=== PATIENT | female | born 1975 | race Caucasian/White ===

== ENCOUNTER 2020-05-01 12:39 | Emergency (ER) | payer MEDICAID, OTHER ==
[~2020-05-01] VITALS: Ht 170.2 cm; Wt 77.3 kg
[~2020-05-01 12:39] MED LIST: RISP1TAB48 PO
[2020-05-01 12:47] VITALS: BP 116/68
[2020-05-01] MEDS ORDERED: DiphenhydrAMINE HCL 25 MG CAPSULE PO ONE (14:00)
[2020-05-01] MEDS ORDERED: PSYCH PO (14:32)
== END 2020-05-01 14:44 | disposition home or self-care (01) ==
LOC: EMS 13:50
DX: R21 Rash and other nonspecific skin eruption (principal); F17.210 Nicotine dependence, cigarettes, uncomplicated; F20.9 Schizophrenia, unspecified
CPT/HCPCS: 99406

== ENCOUNTER 2020-07-16 11:04 | Emergency (ER) | payer OTHER ==
[~2020-07-16] VITALS: Ht 167.6 cm; Wt 90.9 kg
[~2020-07-16 11:04] MED LIST changes: +PSYCH PO; -RISP1TAB48 PO
[2020-07-16] MEDS ORDERED: PredniSONE 20 MG TABLET PO ONE (11:30)
[2020-07-16] MEDS ORDERED: METF-960 PO (11:48)
[2020-07-16] MEDS ORDERED: BENZ0.5T44 PO (11:48)
[2020-07-16] MEDS ORDERED: FLUP1 PO (11:48)
[2020-07-16 17:10] VITALS: BP 120/79
== END 2020-07-16 17:12 | disposition home or self-care (01) ==
LOC: EMS 11:06
DX: T78.2XXA Anaphylactic shock, unspecified, initial encounter (principal); Z91.011 Allergy to milk products; Z88.0 Allergy status to penicillin; X58.XXXA Exposure to other specified factors, initial encounter
CPT/HCPCS: 99285; J7512; 99283

== ENCOUNTER 2020-08-06 15:24 | Emergency (ER) | payer OTHER ==
[~2020-08-06] VITALS: Ht 167.6 cm; Wt 77.3 kg
[~2020-08-06 15:24] MED LIST changes: +BENZ0.5T44 PO; +FLUP1 PO; +METF-960 PO
[2020-08-06] MEDS ORDERED: IBUP-1506 PO (15:33)
[2020-08-06 19:30] VITALS: BP 127/79
== END 2020-08-06 21:11 | disposition home or self-care (01) ==
LOC: EMS 15:26
DX: S62.634A Displaced fracture of distal phalanx of right ring finger, initial encounter for closed fracture (principal); X58.XXXA Exposure to other specified factors, initial encounter; Y93.89 Activity, other specified; Y92.89 Other specified places as the place of occurrence of the external cause; Y99.8 Other external cause status
CPT/HCPCS: 99283

== ENCOUNTER 2021-02-06 14:40 | Emergency (ER) | payer OTHER ==
[~2021-02-06] VITALS: Ht 167.6 cm; Wt 77.3 kg
[~2021-02-06 14:40] MED LIST changes: +IBUP-1506 PO
[2021-02-06 19:30] VITALS: BP 119/67
== END 2021-02-06 20:00 | disposition home or self-care (01) ==
LOC: EMS 14:43
DX: F20.9 Schizophrenia, unspecified (principal); F17.210 Nicotine dependence, cigarettes, uncomplicated; E11.9 Type 2 diabetes mellitus without complications; F31.9 Bipolar disorder, unspecified
CPT/HCPCS: 99284; Z7502

== ENCOUNTER 2022-01-13 16:04 | Emergency (ER) | payer OTHER ==
[~2022-01-13] VITALS: Ht 167.6 cm; Wt 84.1 kg
[~2022-01-13 16:04] MED LIST changes: -BENZ0.5T44 PO; +BENZ0.5T49 PO; +METF-1211 PO; -METF-960 PO
[2022-01-13 16:05] VITALS: BP 142/89
[2022-01-13] MEDS ORDERED: DIPH25TA51 PO (19:34)
[2022-01-13] MEDS ORDERED: PERM60CR19 TP (19:34)
== END 2022-01-13 23:06 | disposition home or self-care (01) ==
LOC: EMS 16:06
DX: B86 Scabies (principal); F20.9 Schizophrenia, unspecified; F31.9 Bipolar disorder, unspecified; E11.9 Type 2 diabetes mellitus without complications; F17.210 Nicotine dependence, cigarettes, uncomplicated; Z88.8 Allergy status to other drugs, medicaments and biological substances; Z91.011 Allergy to milk products; Z88.0 Allergy status to penicillin; Z91.014 Allergy to mammalian meats
CPT/HCPCS: 99282; Z7502

== ENCOUNTER 2022-04-17 18:27 | Inpatient (IN) | payer MEDICAID, OTHER ==
[~2022-04-17] VITALS: Ht 165.1 cm; Wt 84.0 kg
[~2022-04-17 18:27] MED LIST changes: -BENZ0.5T49 PO; +DIPH25TA51 PO; -FLUP1 PO; -IBUP-1506 PO; -METF-1211 PO; +PERM60CR19 TP; -PSYCH PO
[2022-04-17 19:56] LABS: BASOPHILS % (AUTO) 0.5 % (0.0-2.0); EOSINOPHILS % (AUTO) 1.8 % (1.0-6.0); HEMATOCRIT 40.7 % (36-46); HEMOGLOBIN 13.5 g/dL (12.0-16.0); LYMPHOCYTES # (AUTO) 3.3 K/uL (1.0-4.8); LYMPHOCYTES % (AUTO) 35.5 % (22.0-44.0); MEAN CORPUSCULAR HEMOGLOBIN 27.7 pg (26.0-34.0); MEAN CORPUSCULAR HGB CONC 33.2 G/dL (31.0-37.0); MEAN CORPUSCULAR VOLUME 83 fL (80-100); MONOCYTES # (AUTO) 0.6 K/uL (0.1-1.0); MONOCYTES % (AUTO) 6.1 % (2.0-9.0); NEUTROPHILS # (AUTO) 5.2 K/uL (1.8-7.7); NEUTROPHILS % (AUTO) 56.1 % (40.0-70.0); PLATELET COUNT (AUTO) 273 K/uL (150-450); RED BLOOD CELL COUNT(AUTO) 4.89 MIL/uL (4.00-5.20); RED CELL DISTRIBUTION WIDTH 15.1 % (11.5-14.5)
[2022-04-17 20:03] LABS: ANION GAP 8 mmol/L (8-16); CALCIUM, TOTAL 9.1 mg/dL (8.8-10.5); CARBON DIOXIDE 28 mmol/L (22-29); CHLORIDE 105 mmol/L (98-107); CREATININE 0.84 mg/dL (0.60-1.30); GLUCOSE,RANDOM 88 mg/dL (70-110); POTASSIUM 4.2 mmol/L (3.5-5.1); SODIUM SERUM 141 mmol/L (136-145); UREA NITROGEN, BLOOD 13 mg/dL (7-18)
[2022-04-17 20:06] LABS: GLOMERULAR FILTR. RATE CALC > 60 mL/min (>60)
[2022-04-17 20:09] LABS: ALANINE AMINOTRANSFERASE 7 U/L (12-78); ALBUMIN 3.7 g/dL (3.4-5.0); ALKALINE PHOSPHATASE 68 U/L (46-116); ASPARTATE AMINOTRANSFERASE 10 U/L (15-37); BILIRUBIN,TOTAL 0.1 mg/dL (0.1-1.0); TOTAL PROTEIN, SERUM 7.1 g/dL (6.4-8.2)
[2022-04-17 21:07] LABS: AMPHET/METH SCREEN,URINE NEGATIVE (NEGATIVE); BARBITURATE SCREEN, URINE NEGATIVE (NEGATIVE); BENZODIAZEPINES SCREEN,URINE NEGATIVE (NEGATIVE); CANNABINOID SCREEN,URINE NEGATIVE (NEGATIVE); COCAINE SCREEN,URINE NEGATIVE (NEGATIVE); METHADONE SCREEN, URINE NEGATIVE (NEGATIVE); OPIATE SCREEN,URINE NEGATIVE (NEGATIVE)
[2022-04-17 21:08] LABS: PHENCYCLIDINE SCREEN,URINE NEGATIVE (NEGATIVE)
[2022-04-17 22:04] LABS: COVID AG,FIA SOURCE NASAL SWAB
[2022-04-18] MEDS: ZOLPIDEM TARTRATE 10 MG TABLET PO PRN (01:32)
[2022-04-18 02:04] LABS: APPEARANCE,URINE CLEAR (CLEAR); BILIRUBIN,URINE NEGATIVE (NEGATIVE); GLUCOSE, URINE (UA) NEGATIVE (NEGATIVE); KETONES,URINE NEGATIVE (NEGATIVE); LEUKOCYTE ESTERASE ,URINE NEGATIVE (NEGATIVE); NITRATE,URINE NEGATIVE (NEGATIVE); OCCULT BLOOD,URINE NEGATIVE (NEGATIVE); PROTEIN,URINE NEGATIVE (NEGATIVE); SPECIFIC GRAVITIY, URINE 1.006 (1.003-1.030); UROBILINOGEN,URINE <=1.0 mg/dL (<=1.0)
[2022-04-18 02:18] VITALS: BP 152/99
[2022-04-18] MEDS ORDERED: CloNIDine HCL 0.1 MG TABLET PO PRN (08:45)
[2022-04-18] MEDS ORDERED: MAGNESIUM HYDROXIDE SUSPENSION 30 ML UDCUP PO PRN (08:45)
[2022-04-18] MEDS ORDERED: PETROLATUM,WHITE 28 GM JELLY TP PRN (08:45)
[2022-04-18] MEDS ORDERED: ONDANSETRON HCL 4 MG TABLET PO PRN (08:45)
[2022-04-18] MEDS ORDERED: OMEPRAZOLE 20 MG CAPSULE PO PRN (08:45)
[2022-04-18] MEDS: LORazepam 2 MG TABLET PO PRN ×2 (08:45→21:15)
[2022-04-18] MEDS ORDERED: DOCUSATE SODIUM 100 MG CAPSULE PO PRN (08:45)
[2022-04-18] MEDS ORDERED: BENZOCAINE/MENTHOL LOZENGE PO PRN (08:45)
[2022-04-18] MEDS: HALOPERIDOL 5 MG TABLET PO PRN ×2 (08:45→21:15)
[2022-04-18] MEDS ORDERED: ALBUTEROL SULFATE HFA 90 MCG/PUFF 8 GM INHALER IH PRN (08:45)
[2022-04-18] MEDS ORDERED: LOPERAMIDE HCL 2 MG CAPSULE PO PRN (08:45)
[2022-04-18] MEDS ORDERED: MAG HYDROX/AL HYDROX/SIMETH ES 30 ML SUSPENSION UDCUP PO PRN (08:45)
[2022-04-18] MEDS ORDERED: BACITRACIN 28 GM OINTMENT TP PRN (08:45)
[2022-04-18 08:55] VITALS: BP 127/81
[2022-04-18 11:23] LABS: APPEARANCE,URINE CLEAR (CLEAR); BILIRUBIN,URINE NEGATIVE (NEGATIVE); GLUCOSE, URINE (UA) NEGATIVE (NEGATIVE); KETONES,URINE NEGATIVE (NEGATIVE); LEUKOCYTE ESTERASE ,URINE NEGATIVE (NEGATIVE); NITRATE,URINE NEGATIVE (NEGATIVE); OCCULT BLOOD,URINE NEGATIVE (NEGATIVE); PH,URINE 5.5 (5.0-8.0); PROTEIN,URINE NEGATIVE (NEGATIVE); SPECIFIC GRAVITIY, URINE 1.002 (1.003-1.030); UROBILINOGEN,URINE <=1.0 mg/dL (<=1.0)
[2022-04-18 16:00] VITALS: BP 123/60
[2022-04-18] MEDS: IBUPROFEN 600 MG TABLET PO PRN (16:00)
[2022-04-18 17:35] VITALS: BP 117/54
[2022-04-19 08:55] VITALS: BP 143/90
[2022-04-19] MEDS: RisperiDONE 3 MG TABLET PO SCH ×2 (09:43→16:39)
[2022-04-19] MEDS: DIVALPROEX SODIUM 500 MG DR TABLET PO SCH ×2 (09:43→20:20)
[2022-04-19 09:44] VITALS: BP 143/100
[2022-04-19] MEDS: IBUPROFEN 600 MG TABLET PO PRN (09:44)
[2022-04-19 10:44] VITALS: BP 132/89
[2022-04-19] MEDS: LORazepam 2 MG TABLET PO PRN (14:38)
[2022-04-19 16:30] VITALS: BP 109/73
[2022-04-19 20:36] VITALS: BP 118/76
[2022-04-20] MEDS: RisperiDONE 3 MG TABLET PO SCH ×2 (08:21→16:07)
[2022-04-20] MEDS: DIVALPROEX SODIUM 500 MG DR TABLET PO SCH ×2 (08:21→20:41)
[2022-04-20] MEDS: LORazepam 2 MG TABLET PO PRN ×2 (09:21→14:13)
[2022-04-20 10:29] VITALS: BP 149/88
[2022-04-20] MEDS: HALOPERIDOL 5 MG TABLET PO PRN (14:13)
[2022-04-20] MEDS: NICOTINE 21 MG/24 HOUR PATCH TD PRN (14:35)
[2022-04-20 16:13] VITALS: BP 148/78
[2022-04-20] MEDS: ACETAMINOPHEN 325 MG TABLET PO PRN (20:42)
[2022-04-20 20:57] VITALS: BP 121/75
[2022-04-21 08:42] VITALS: BP 115/69
[2022-04-21] MEDS: DIVALPROEX SODIUM 500 MG DR TABLET PO SCH ×2 (09:14→20:06)
[2022-04-21] MEDS: RisperiDONE 3 MG TABLET PO SCH ×2 (09:15→16:52)
[2022-04-21] MEDS: LORazepam 2 MG TABLET PO PRN ×2 (10:56→15:19)
[2022-04-21 11:01] VITALS: BP 121/73
[2022-04-21] MEDS: ACETAMINOPHEN 325 MG TABLET PO PRN (11:01)
[2022-04-21 12:01] VITALS: BP 118/76
[2022-04-21] MEDS: NICOTINE 21 MG/24 HOUR PATCH TD PRN (15:02)
[2022-04-21 16:24] VITALS: BP 123/80
[2022-04-22 08:06] VITALS: BP 117/60
[2022-04-22] MEDS: DIVALPROEX SODIUM 500 MG DR TABLET PO SCH ×2 (08:33→20:55)
[2022-04-22] MEDS: RisperiDONE 3 MG TABLET PO SCH ×2 (08:33→17:37)
[2022-04-22] MEDS: LORazepam 2 MG TABLET PO PRN ×2 (08:33→17:37)
[2022-04-22 10:20] VITALS: BP 112/68
[2022-04-22] MEDS: IBUPROFEN 600 MG TABLET PO PRN (10:20)
[2022-04-22 11:20] VITALS: BP 122/74
[2022-04-22 16:12] VITALS: BP 116/68
[2022-04-23 06:58] LABS: HEMOGLOBIN A1C 5.5 % (3.8-5.6)
[2022-04-23 07:08] LABS: CHOL/HDL RATIO 3.7 (3.9-5.7); THYROID STIMULATING HORMONE 2.14 uIU/mL (0.36-3.74)
[2022-04-23] MEDS: HALOPERIDOL 5 MG TABLET PO PRN (07:51)
[2022-04-23] MEDS: RisperiDONE 3 MG TABLET PO SCH ×2 (07:51→16:56)
[2022-04-23] MEDS: DIVALPROEX SODIUM 500 MG DR TABLET PO SCH ×2 (07:51→21:02)
[2022-04-23] MEDS: NICOTINE 21 MG/24 HOUR PATCH TD PRN (07:51)
[2022-04-23] MEDS: LORazepam 2 MG TABLET PO PRN (07:51)
[2022-04-23 08:00] VITALS: BP 106/68
[2022-04-24 06:07] LABS: COVID AG,FIA SOURCE NASAL SWAB
[2022-04-24] MEDS: HALOPERIDOL 5 MG TABLET PO PRN (06:45)
[2022-04-24] MEDS: RisperiDONE 3 MG TABLET PO SCH ×2 (07:47→16:22)
[2022-04-24] MEDS: DIVALPROEX SODIUM 500 MG DR TABLET PO SCH ×2 (07:47→20:14)
[2022-04-24 08:00] VITALS: BP 142/79
[2022-04-24 10:54] VITALS: BP 135/79
[2022-04-24] MEDS: ACETAMINOPHEN 325 MG TABLET PO PRN (10:54)
[2022-04-24 15:56] VITALS: BP 129/72
[2022-04-24] MEDS: IBUPROFEN 600 MG TABLET PO PRN (15:56)
[2022-04-25] MEDS: ACETAMINOPHEN 325 MG TABLET PO PRN (06:32)
[2022-04-25] MEDS: RisperiDONE 3 MG TABLET PO SCH ×2 (08:06→17:37)
[2022-04-25] MEDS: DIVALPROEX SODIUM 500 MG DR TABLET PO SCH ×2 (08:06→20:20)
[2022-04-25 08:34] VITALS: BP 120/57
[2022-04-25] MEDS: HALOPERIDOL 5 MG TABLET PO PRN (09:55)
[2022-04-25] MEDS: NICOTINE 21 MG/24 HOUR PATCH TD PRN (09:56)
[2022-04-25 16:51] VITALS: BP 109/48
[2022-04-25] MEDS: ZOLPIDEM TARTRATE 10 MG TABLET PO PRN (21:47)
[2022-04-26] MEDS: HALOPERIDOL 5 MG TABLET PO PRN (08:00)
[2022-04-26] MEDS: DIVALPROEX SODIUM 500 MG DR TABLET PO SCH (08:00)
[2022-04-26] MEDS: RisperiDONE 3 MG TABLET PO SCH (08:01)
[2022-04-26 08:11] VITALS: BP 115/70
[2022-04-26] MEDS ORDERED: RISP3TAB63 PO (10:14)
[2022-04-26] MEDS ORDERED: DIVA-112 PO (10:14)
== END 2022-04-26 10:45 | disposition home or self-care (01) | DRG 750 ==
LOC: EMS 18:27 → 3EC 04-18 00:29
PROVIDERS: ADMIT Psychiatry & Neurology Psychiatry; ATTEND Psychiatry & Neurology Psychiatry
DX: F25.9 Schizoaffective disorder, unspecified (principal); E11.9 Type 2 diabetes mellitus without complications; Z20.822 Contact with and (suspected) exposure to COVID-19; F32.A Depression, unspecified; F41.9 Anxiety disorder, unspecified; G47.00 Insomnia, unspecified; I10 Essential (primary) hypertension; J44.9 Chronic obstructive pulmonary disease, unspecified; K59.00 Constipation, unspecified; Z72.0 Tobacco use; Z88.0 Allergy status to penicillin; Z91.011 Allergy to milk products
CPT/HCPCS: 80053; 80061; 80164; 81003; 83036; 84443; 84703; 85025; 87081; 99285; G0480

== ENCOUNTER 2023-04-29 10:56 | Inpatient (IN) | payer MEDICAID, OTHER ==
[~2023-04-29] VITALS: Ht 162.6 cm; Wt 92.1 kg
[~2023-04-29 10:56] MED LIST changes: -DIPH25TA51 PO; +DIVA-112 PO; -PERM60CR19 TP; +RISP3TAB63 PO
[2023-04-29 11:16] LABS: GLUCOMETER DEV NAME(LOC) ERT.5; GLUCOSE,POINT OF CARE 136 MG/DL (70-110)
[2023-04-29 11:53] LABS: BASOPHILS % (AUTO) 0.6 % (0.0-2.0); EOSINOPHILS % (AUTO) 0.9 % (1.0-6.0); HEMATOCRIT 39.3 % (36-46); LYMPHOCYTES # (AUTO) 2.1 K/uL (1.0-4.8); MEAN CORPUSCULAR HEMOGLOBIN 26.7 pg (26.0-34.0); MEAN CORPUSCULAR HGB CONC 33.1 G/dL (31.0-37.0); MEAN CORPUSCULAR VOLUME 81 fL (80-100); MONOCYTES # (AUTO) 0.4 K/uL (0.1-1.0); MONOCYTES % (AUTO) 5.3 % (2.0-9.0); NEUTROPHILS # (AUTO) 5.1 K/uL (1.8-7.7); NEUTROPHILS % (AUTO) 66.2 % (40.0-70.0); PLATELET COUNT (AUTO) 268 K/uL (150-450); RED BLOOD CELL COUNT(AUTO) 4.87 MIL/uL (4.00-5.20); RED CELL DISTRIBUTION WIDTH 15.2 % (11.5-14.5); WHITE BLOOD COUNT (AUTO) 7.7 K/uL (4.5-11.0)
[2023-04-29 11:54] LABS: COVID AG,FIA SOURCE NASAL SWAB; SARS-COV2 (COVID) ANTIGEN,FIA Negative (Negative)
[2023-04-29 12:01] LABS: ALCOHOL, BLOOD (SERUM) < 3 mg/dL (0-10)
[2023-04-29 12:12] LABS: ANION GAP 9 mmol/L (8-16); CARBON DIOXIDE 25 mmol/L (22-29); CHLORIDE 102 mmol/L (98-107); CREATININE 1.01 mg/dL (0.60-1.30); GLUCOSE,RANDOM 125 mg/dL (70-110); POTASSIUM 3.6 mmol/L (3.5-5.1); SODIUM SERUM 136 mmol/L (136-145); UREA NITROGEN, BLOOD 7 mg/dL (7-18)
[2023-04-29 12:13] LABS: CALCIUM, TOTAL 8.9 mg/dL (8.8-10.5); GLOMERULAR FILTR. RATE CALC 58 mL/min (>60)
[2023-04-29 12:18] LABS: ALANINE AMINOTRANSFERASE 11 U/L (12-78); ALBUMIN 3.8 g/dL (3.4-5.0); ALKALINE PHOSPHATASE 76 U/L (46-116); ASPARTATE AMINOTRANSFERASE 14 U/L (15-37); BILIRUBIN,TOTAL 0.2 mg/dL (0.1-1.0); TOTAL PROTEIN, SERUM 7.7 g/dL (6.4-8.2)
[2023-04-29 12:32] LABS: AMPHET/METH SCREEN,URINE NEGATIVE (NEGATIVE); BARBITURATE SCREEN, URINE NEGATIVE (NEGATIVE); BENZODIAZEPINES SCREEN,URINE NEGATIVE (NEGATIVE); CANNABINOID SCREEN,URINE NEGATIVE (NEGATIVE); COCAINE SCREEN,URINE NEGATIVE (NEGATIVE); METHADONE SCREEN, URINE NEGATIVE (NEGATIVE); OPIATE SCREEN,URINE NEGATIVE (NEGATIVE); PHENCYCLIDINE SCREEN,URINE NEGATIVE (NEGATIVE)
[2023-04-29 12:38] LABS: ALCOHOL, URINE DRUG SCREEN NEGATIVE (NEGATIVE)
[2023-04-29] MEDS ORDERED: LORazepam 1 MG TABLET PO ONE (13:00)
[2023-04-29] MEDS ORDERED: HALOPERIDOL 5 MG TABLET PO ONE (13:00)
[2023-04-29 15:45] VITALS: BP 128/58; PULSE 86; RESP 19; TEMP 98; O2SAT 97
[2023-04-29 16:06] LABS: GLUCOMETER DEV NAME(LOC) BV2S.; GLUCOSE,POINT OF CARE 126 MG/DL (70-110)
[2023-04-29] MEDS: HALOPERIDOL 5 MG TABLET PO PRN (16:10)
[2023-04-29] MEDS ORDERED: CloNIDine HCL 0.1 MG TABLET PO PRN (16:45)
[2023-04-29] MEDS ORDERED: MAG HYDROX/ALUMINUM HYD/SIMETH ES 30 ML SUSPENSION UDCUP PO PRN (16:45)
[2023-04-29] MEDS ORDERED: ALBUTEROL SULFATE HFA 90 MCG/PUFF 8 GM INHALER IH PRN (16:45)
[2023-04-29] MEDS ORDERED: GuaiFENesin/D-METHORPHAN [SUGAR-FREE] 200-20MG/10 ML SYRUP UDCUP PO PRN (16:45)
[2023-04-29] MEDS ORDERED: PETROLATUM,WHITE 28 GM JELLY TP PRN (16:45)
[2023-04-29] MEDS ORDERED: MAGNESIUM HYDROXIDE SUSPENSION 30 ML UDCUP PO PRN (16:45)
[2023-04-29] MEDS ORDERED: IBUPROFEN 400 MG TABLET PO PRN (16:45)
[2023-04-29] MEDS ORDERED: LOPERAMIDE HCL 2 MG CAPSULE PO PRN (16:45)
[2023-04-29] MEDS ORDERED: ONDANSETRON HCL 4 MG TABLET PO PRN (16:45)
[2023-04-29] MEDS ORDERED: PERMETHRIN 1% 60 ML LOTION TP ONE (17:30)
[2023-04-29] MEDS ORDERED: PERMETHRIN 5% 60 GM CREAM TP ONE (17:45)
[2023-04-29] MEDS ORDERED: GLUCAGON,HUMAN RECOMBINANT 1 MG VIAL IM PRN (18:30)
[2023-04-29 20:41] LABS: GLUCOMETER DEV NAME(LOC) BV2S.; GLUCOSE,POINT OF CARE 109 MG/DL (70-110)
[2023-04-29] MEDS: LORazepam 2 MG TABLET PO PRN (21:00)
[2023-04-30 01:09] VITALS: RESP 18; TEMP 97.9
[2023-04-30] MEDS: DOCUSATE SODIUM 100 MG CAPSULE PO PRN (05:58)
[2023-04-30] MEDS: LORazepam 2 MG TABLET PO PRN ×2 (07:03→12:11)
[2023-04-30 07:41] LABS: GLUCOMETER DEV NAME(LOC) BV2S.; GLUCOSE,POINT OF CARE 109 MG/DL (70-110)
[2023-04-30 07:58] LABS: HEMOGLOBIN A1C 5.8 % (3.8-5.6)
[2023-04-30 08:12] LABS: ALANINE AMINOTRANSFERASE 13 U/L (12-78); ALBUMIN 3.6 g/dL (3.4-5.0); ALKALINE PHOSPHATASE 67 U/L (46-116); ANION GAP 9 mmol/L (8-16); ASPARTATE AMINOTRANSFERASE 12 U/L (15-37); BILIRUBIN,TOTAL 0.3 mg/dL (0.1-1.0); CALCIUM, TOTAL 8.8 mg/dL (8.8-10.5); CARBON DIOXIDE 25 mmol/L (22-29); CHLORIDE 104 mmol/L (98-107); CHOLESTEROL 180 mg/dL (131-200); CREATININE 0.87 mg/dL (0.60-1.30); GLOMERULAR FILTR. RATE CALC > 60 mL/min (>60); GLUCOSE,RANDOM 159 mg/dL (70-110); HDL CHOLESTEROL 36 mg/dL (40-60); LDL CHOL (CALC.) 119 mg/dL (0-130); SODIUM SERUM 138 mmol/L (136-145); THYROID STIMULATING HORMONE 2.05 uIU/mL (0.36-3.74); TOTAL PROTEIN, SERUM 7.2 g/dL (6.4-8.2); TRIGLYCERIDES 125 mg/dL (15-150); UREA NITROGEN, BLOOD 5 mg/dL (7-18)
[2023-04-30 08:27] VITALS: BP 118/72; PULSE 88; RESP 18; TEMP 97.6; O2SAT 100
[2023-04-30] MEDS: OLANZapine 5 MG TABLET PO SCH (12:11)
[2023-04-30] MEDS: DIVALPROEX SODIUM 500 MG DR TABLET PO SCH (12:11)
[2023-04-30] MEDS ORDERED: LURASIDONE HCL 40 MG TABLET PO SCH (17:00)
[2023-04-30 17:06] LABS: GLUCOMETER DEV NAME(LOC) BV2S.; GLUCOSE,POINT OF CARE 103 MG/DL (70-110)
[2023-04-30 20:50] VITALS: RESP 18; TEMP 98
[2023-04-30 22:06] LABS: GLUCOMETER DEV NAME(LOC) BV2S.; GLUCOSE,POINT OF CARE 87 MG/DL (70-110)
[2023-05-01] MEDS: DOCUSATE SODIUM 100 MG CAPSULE PO PRN (03:57)
[2023-05-01] MEDS: ACETAMINOPHEN 325 MG TABLET PO PRN (03:57)
[2023-05-01 06:21] LABS: GLUCOMETER DEV NAME(LOC) BV2S.; GLUCOSE,POINT OF CARE 91 MG/DL (70-110)
[2023-05-01 06:25] VITALS: BP 120/70; RESP 18; TEMP 97.9
[2023-05-01] MEDS: LORazepam 2 MG TABLET PO PRN (06:33)
[2023-05-01] MEDS: DIVALPROEX SODIUM 500 MG DR TABLET PO SCH (08:33)
[2023-05-01] MEDS: OLANZapine 5 MG TABLET PO SCH (08:33)
[2023-05-01 09:09] VITALS: BP 113/69; PULSE 100; RESP 19; TEMP 97.3; O2SAT 100
[2023-05-01 11:27] LABS: GLUCOMETER DEV NAME(LOC) BV2S.; GLUCOSE,POINT OF CARE 139 MG/DL (70-110)
[2023-05-01 18:31] LABS: GLUCOMETER DEV NAME(LOC) BV2S.; GLUCOSE,POINT OF CARE 99 MG/DL (70-110)
[2023-05-01 21:05] VITALS: BP 100/69; PULSE 78; RESP 18; TEMP 98.2; O2SAT 97
[2023-05-01 21:06] LABS: GLUCOMETER DEV NAME(LOC) BV2S.; GLUCOSE,POINT OF CARE 130 MG/DL (70-110)
[2023-05-02] MEDS: ZOLPIDEM TARTRATE 10 MG TABLET PO PRN (02:27)
[2023-05-02] MEDS: LORazepam 2 MG TABLET PO PRN ×2 (04:25→12:30)
[2023-05-02 06:32] LABS: GLUCOMETER DEV NAME(LOC) BV2S.; GLUCOSE,POINT OF CARE 83 MG/DL (70-110)
[2023-05-02 08:04] LABS: APPEARANCE,URINE CLEAR (CLEAR); BILIRUBIN,URINE NEGATIVE (NEGATIVE); COLOR,URINE COLORLESS (YELLOW); GLUCOSE, URINE (UA) NEGATIVE (NEGATIVE); KETONES,URINE NEGATIVE (NEGATIVE); LEUKOCYTE ESTERASE ,URINE NEGATIVE (NEGATIVE); NITRATE,URINE NEGATIVE (NEGATIVE); OCCULT BLOOD,URINE MODERATE (NEGATIVE); PROTEIN,URINE NEGATIVE (NEGATIVE); SPECIFIC GRAVITIY, URINE 1.002 (1.003-1.030); UROBILINOGEN,URINE <=1.0 mg/dL (<=1.0)
[2023-05-02] MEDS: DIVALPROEX SODIUM 500 MG DR TABLET PO SCH (08:17)
[2023-05-02] MEDS: OLANZapine 5 MG TABLET PO SCH (08:17)
[2023-05-02 08:19] LABS: ALCOHOL, URINE DRUG SCREEN NEGATIVE (NEGATIVE); AMPHET/METH SCREEN,URINE NEGATIVE (NEGATIVE); BARBITURATE SCREEN, URINE NEGATIVE (NEGATIVE); BENZODIAZEPINES SCREEN,URINE NEGATIVE (NEGATIVE); CANNABINOID SCREEN,URINE NEGATIVE (NEGATIVE); COCAINE SCREEN,URINE NEGATIVE (NEGATIVE); METHADONE SCREEN, URINE NEGATIVE (NEGATIVE); OPIATE SCREEN,URINE NEGATIVE (NEGATIVE); PHENCYCLIDINE SCREEN,URINE NEGATIVE (NEGATIVE)
[2023-05-02 08:44] LABS: BACTERIA,URINE None Seen /HPF (None Seen); RBC,URINE None Seen /HPF (0-2); SQUAMOUS EPITHELIAL CELL,UR Few /LPF (None Seen); WBC,URINE None Seen /HPF (0-5)
[2023-05-02 09:16] VITALS: BP 106/69; PULSE 96; RESP 17; TEMP 98.2; O2SAT 100
[2023-05-02 11:26] LABS: GLUCOMETER DEV NAME(LOC) BV2S.; GLUCOSE,POINT OF CARE 82 MG/DL (70-110)
[2023-05-02] MEDS: HALOPERIDOL 5 MG TABLET PO PRN (12:30)
[2023-05-02 15:28] VITALS: RESP 17
[2023-05-02] MEDS: ACETAMINOPHEN 325 MG TABLET PO PRN (15:28)
[2023-05-02 16:28] VITALS: RESP 16
[2023-05-02 16:51] LABS: GLUCOMETER DEV NAME(LOC) BV2S.; GLUCOSE,POINT OF CARE 91 MG/DL (70-110)
[2023-05-02 20:00] VITALS: BP 127/60; PULSE 81; RESP 19; TEMP 97.7; O2SAT 98
[2023-05-02 20:26] LABS: GLUCOMETER DEV NAME(LOC) BV2S.; GLUCOSE,POINT OF CARE 110 MG/DL (70-110)
[2023-05-03] MEDS: LORazepam 2 MG TABLET PO PRN ×2 (05:06→12:35)
[2023-05-03 06:31] LABS: GLUCOMETER DEV NAME(LOC) BV2S.; GLUCOSE,POINT OF CARE 86 MG/DL (70-110)
[2023-05-03] MEDS: OLANZapine 5 MG TABLET PO SCH (08:22)
[2023-05-03] MEDS: DIVALPROEX SODIUM 500 MG DR TABLET PO SCH (08:22)
[2023-05-03 09:04] VITALS: BP 138/72; PULSE 86; RESP 17; TEMP 97.1; O2SAT 97
[2023-05-03 11:26] LABS: GLUCOMETER DEV NAME(LOC) BV2S.; GLUCOSE,POINT OF CARE 121 MG/DL (70-110)
[2023-05-03] MEDS: HALOPERIDOL 5 MG TABLET PO PRN (12:35)
[2023-05-03 19:51] LABS: GLUCOMETER DEV NAME(LOC) BV2S.; GLUCOSE,POINT OF CARE 132 MG/DL (70-110)
[2023-05-03 20:00] VITALS: BP 107/67; PULSE 84; RESP 18; TEMP 97; O2SAT 97
[2023-05-03 21:31] LABS: GLUCOMETER DEV NAME(LOC) BV3S.; GLUCOSE,POINT OF CARE 120 MG/DL (70-110)
[2023-05-04] MEDS: LORazepam 2 MG TABLET PO PRN ×3 (04:48→17:52)
[2023-05-04 06:36] LABS: GLUCOMETER DEV NAME(LOC) BV3S.; GLUCOSE,POINT OF CARE 140 MG/DL (70-110)
[2023-05-04 08:10] VITALS: BP 130/75; PULSE 98; RESP 18; TEMP 97.6; O2SAT 98
[2023-05-04] MEDS: DIVALPROEX SODIUM 500 MG DR TABLET PO SCH (08:22)
[2023-05-04] MEDS: OLANZapine 5 MG TABLET PO SCH (08:22)
[2023-05-04 11:16] LABS: GLUCOMETER DEV NAME(LOC) BV3S.; GLUCOSE,POINT OF CARE 125 MG/DL (70-110)
[2023-05-04] MEDS: INSULIN LISPRO 100 UNITS/ML SQ PRN (16:31)
[2023-05-04 16:46] LABS: GLUCOMETER DEV NAME(LOC) BV3S.; GLUCOSE,POINT OF CARE 143 MG/DL (70-110)
[2023-05-04 20:36] LABS: GLUCOMETER DEV NAME(LOC) BV3S.; GLUCOSE,POINT OF CARE 116 MG/DL (70-110)
[2023-05-04 21:15] VITALS: RESP 18; TEMP 97.8
[2023-05-05 06:51] LABS: GLUCOMETER DEV NAME(LOC) BV3S.; GLUCOSE,POINT OF CARE 146 MG/DL (70-110)
[2023-05-05] MEDS: INSULIN LISPRO 100 UNITS/ML SQ PRN (06:51)
[2023-05-05 08:16] VITALS: BP 109/68; PULSE 100; RESP 18; TEMP 98.2; O2SAT 99
[2023-05-05] MEDS: OLANZapine 5 MG TABLET PO SCH (08:25)
[2023-05-05] MEDS: DIVALPROEX SODIUM 500 MG DR TABLET PO SCH (08:25)
[2023-05-05] MEDS: LORazepam 2 MG TABLET PO PRN (08:25)
[2023-05-05] MEDS: HALOPERIDOL 5 MG TABLET PO PRN (11:30)
[2023-05-05 11:36] LABS: GLUCOMETER DEV NAME(LOC) BV3S.; GLUCOSE,POINT OF CARE 122 MG/DL (70-110)
[2023-05-05 17:07] LABS: GLUCOMETER DEV NAME(LOC) BV3S.; GLUCOSE,POINT OF CARE 119 MG/DL (70-110)
[2023-05-05 20:03] VITALS: BP 95/64; PULSE 73; RESP 17; TEMP 98.2; O2SAT 98
[2023-05-05 23:11] LABS: GLUCOMETER DEV NAME(LOC) BV3S.; GLUCOSE,POINT OF CARE 121 MG/DL (70-110)
[2023-05-06] MEDS: ZOLPIDEM TARTRATE 10 MG TABLET PO PRN (01:18)
[2023-05-06 06:26] LABS: GLUCOMETER DEV NAME(LOC) BV3S.; GLUCOSE,POINT OF CARE 92 MG/DL (70-110)
[2023-05-06] MEDS: OLANZapine 5 MG TABLET PO SCH (08:02)
[2023-05-06] MEDS: HALOPERIDOL 5 MG TABLET PO PRN (08:02)
[2023-05-06] MEDS: LORazepam 2 MG TABLET PO PRN (08:02)
[2023-05-06] MEDS: DIVALPROEX SODIUM 500 MG DR TABLET PO SCH (08:02)
[2023-05-06 08:48] VITALS: BP 116/67; PULSE 92; RESP 18; TEMP 98.3; O2SAT 100
[2023-05-06 11:41] LABS: GLUCOMETER DEV NAME(LOC) BV3S.; GLUCOSE,POINT OF CARE 106 MG/DL (70-110)
[2023-05-06 17:11] LABS: GLUCOMETER DEV NAME(LOC) BV3S.; GLUCOSE,POINT OF CARE 109 MG/DL (70-110)
[2023-05-06 20:31] VITALS: RESP 18
[2023-05-06 22:01] LABS: GLUCOMETER DEV NAME(LOC) BV3S.; GLUCOSE,POINT OF CARE 109 MG/DL (70-110)
[2023-05-07] MEDS: ZOLPIDEM TARTRATE 10 MG TABLET PO PRN (02:17)
[2023-05-07 05:36] LABS: GLUCOMETER DEV NAME(LOC) BV3S.; GLUCOSE,POINT OF CARE 94 MG/DL (70-110)
[2023-05-07] MEDS: DIVALPROEX SODIUM 500 MG DR TABLET PO SCH (08:06)
[2023-05-07] MEDS: OLANZapine 5 MG TABLET PO SCH (08:06)
[2023-05-07] MEDS: LORazepam 2 MG TABLET PO PRN (08:06)
[2023-05-07] MEDS: HALOPERIDOL 5 MG TABLET PO PRN (08:06)
[2023-05-07 08:16] VITALS: BP 122/71; PULSE 96; RESP 18; TEMP 98.4; O2SAT 96
[2023-05-07] MEDS: DOCUSATE SODIUM 100 MG CAPSULE PO PRN (08:39)
[2023-05-07 11:36] LABS: GLUCOMETER DEV NAME(LOC) BV3S.; GLUCOSE,POINT OF CARE 107 MG/DL (70-110)
[2023-05-07 16:46] LABS: GLUCOMETER DEV NAME(LOC) BV3S.; GLUCOSE,POINT OF CARE 107 MG/DL (70-110)
[2023-05-07 20:21] LABS: GLUCOMETER DEV NAME(LOC) BV3S.; GLUCOSE,POINT OF CARE 107 MG/DL (70-110)
[2023-05-07 20:45] VITALS: BP 106/68; PULSE 7; RESP 18; TEMP 98.2; O2SAT 95
[2023-05-08] MEDS: ZOLPIDEM TARTRATE 10 MG TABLET PO PRN (02:02)
[2023-05-08] MEDS: ACETAMINOPHEN 325 MG TABLET PO PRN (04:39)
[2023-05-08 04:40] VITALS: BP 126/80; PULSE 4; RESP 18; TEMP 97.8; O2SAT 98
[2023-05-08 06:36] LABS: GLUCOMETER DEV NAME(LOC) BV3S.; GLUCOSE,POINT OF CARE 174 MG/DL (70-110)
[2023-05-08] MEDS: INSULIN LISPRO 100 UNITS/ML SQ PRN ×2 (06:41→16:28)
[2023-05-08] MEDS: DIVALPROEX SODIUM 500 MG DR TABLET PO SCH (08:01)
[2023-05-08] MEDS: OLANZapine 5 MG TABLET PO SCH (08:02)
[2023-05-08] MEDS: LORazepam 2 MG TABLET PO PRN ×2 (08:02→15:41)
[2023-05-08] MEDS: HALOPERIDOL 5 MG TABLET PO PRN (08:02)
[2023-05-08 08:29] VITALS: BP 118/62; PULSE 83; RESP 18; TEMP 98.6; O2SAT 98
[2023-05-08 11:56] LABS: GLUCOMETER DEV NAME(LOC) BV3S.; GLUCOSE,POINT OF CARE 119 MG/DL (70-110)
[2023-05-08 16:36] LABS: GLUCOMETER DEV NAME(LOC) BV3S.; GLUCOSE,POINT OF CARE 160 MG/DL (70-110)
[2023-05-08 20:10] VITALS: BP 141/82; PULSE 79; RESP 20; TEMP 97.7; O2SAT 96
[2023-05-08 20:31] LABS: GLUCOMETER DEV NAME(LOC) BV3S.; GLUCOSE,POINT OF CARE 122 MG/DL (70-110)
[2023-05-09] MEDS: ZOLPIDEM TARTRATE 10 MG TABLET PO PRN (02:12)
[2023-05-09 06:01] LABS: GLUCOMETER DEV NAME(LOC) BV3S.; GLUCOSE,POINT OF CARE 91 MG/DL (70-110)
[2023-05-09] MEDS: HALOPERIDOL 5 MG TABLET PO PRN ×2 (08:00→15:47)
[2023-05-09] MEDS: LORazepam 2 MG TABLET PO PRN (08:00)
[2023-05-09] MEDS: DIVALPROEX SODIUM 500 MG DR TABLET PO SCH (08:00)
[2023-05-09] MEDS: OLANZapine 5 MG TABLET PO SCH (08:00)
[2023-05-09] MEDS: NICOTINE 14 MG/24 HOUR PATCH TD PRN (08:02)
[2023-05-09 08:25] VITALS: BP 112/66; PULSE 90; RESP 18; TEMP 96; O2SAT 100
[2023-05-09 12:01] LABS: GLUCOMETER DEV NAME(LOC) BV3S.; GLUCOSE,POINT OF CARE 114 MG/DL (70-110)
[2023-05-09 20:21] VITALS: BP 109/73; PULSE 66; RESP 16; TEMP 98.4; O2SAT 100
[2023-05-10] MEDS: HALOPERIDOL 5 MG TABLET PO PRN (04:20)
[2023-05-10] MEDS: ACETAMINOPHEN 325 MG TABLET PO PRN (06:58)
[2023-05-10] MEDS: OLANZapine 5 MG TABLET PO SCH (08:09)
[2023-05-10] MEDS: DIVALPROEX SODIUM 500 MG DR TABLET PO SCH (08:09)
[2023-05-10] MEDS: DOCUSATE SODIUM 100 MG CAPSULE PO PRN (08:09)
[2023-05-10 08:42] VITALS: BP 150/88; PULSE 93; RESP 18; TEMP 97.7; O2SAT 97
[2023-05-10] MEDS ORDERED: DIVA-112 PO (09:59)
[2023-05-10] MEDS ORDERED: OLAN5TAB52 PO (09:59)
[2023-05-10] MEDS: NICOTINE 14 MG/24 HOUR PATCH TD PRN (11:15)
== END 2023-05-10 16:44 | disposition home or self-care (01) | DRG 750 ==
LOC: EMS 11:06 → B2S 14:04 → B3A 05-03 16:53
PROVIDERS: ADMIT Psychiatry & Neurology Child & Adolescent Psychiatry; ATTEND Psychiatry & Neurology Child & Adolescent Psychiatry
PROC: GZHZZZZ Group Psychotherapy (ICD-10-PCS; principal; 2023-05-02)
DX: F20.0 Paranoid schizophrenia (principal); E11.9 Type 2 diabetes mellitus without complications; I10 Essential (primary) hypertension; F31.9 Bipolar disorder, unspecified; J44.9 Chronic obstructive pulmonary disease, unspecified; Z20.822 Contact with and (suspected) exposure to COVID-19; Z88.0 Allergy status to penicillin; Z88.8 Allergy status to other drugs, medicaments and biological substances; Z91.014 Allergy to mammalian meats; Z91.011 Allergy to milk products; Z91.148 Patient's other noncompliance with medication regimen for other reason
CPT/HCPCS: 80053; 80061; 80307; 81001; 82962; 83036; 84443; 84703; 85025; 99285; G0480